=== PATIENT | female | born 2000 | race Caucasian/White ===

== ENCOUNTER 2022-01-18 08:00 | Outpatient (CLI) | payer BC ==
[2022-01-19 00:37] LABS: CHLAMYDIA TRACHOMATIS DNA NEGATIVE (NEGATIVE); NEISSERIA GONORRHOEAE DNA NEGATIVE (NEGATIVE); TRICHOMONAS VAGINALIS DNA NEGATIVE (NEGATIVE)
== END 2022-01-18 23:59 | disposition home or self-care (01) ==
LOC: LAB.S 08:00
PROVIDERS: ATTEND Emergency Medicine
DX: B37.3 Candidiasis of vulva and vagina (principal)
CPT/HCPCS: 87491; 87591; 87661

== ENCOUNTER 2024-01-21 15:10 | Outpatient (CLI) | payer OTHER | END 2024-01-21 15:11 | disposition home or self-care (01) | LOC: LAB.N 15:10 | PROVIDERS: ATTEND Registered Nurse | DX: N12 Tubulo-interstitial nephritis, not specified as acute or chronic (principal); R30.0 Dysuria; R10.9 Unspecified abdominal pain; R50.9 Fever, unspecified; R82.79 Other abnormal findings on microbiological examination of urine | CPT/HCPCS: 87086; 87181 ==

== ENCOUNTER 2024-03-02 08:00 | Outpatient (CLI) | payer OTHER | END 2024-03-02 23:59 | disposition home or self-care (01) | LOC: LAB.S 08:00 | PROVIDERS: ATTEND Physician Assistant Medical | DX: J02.9 Acute pharyngitis, unspecified (principal) | CPT/HCPCS: 87070 ==